=== PATIENT | male | born 2000 | race Caucasian/White ===

== ENCOUNTER → 2023-11-03 | Outpatient (CLI) | payer OTHER ==
--- NOTE | 2023-12-13 14:25 | P.CEMON ---
30 Day Event monitor note: Patient wore an event monitor for 30 days from 11/03/23-12/02/23. Findings: Patient's baseline heart rate was normal sinus rhythm. There were no signficant atrial fibrillation, atrial flutter, or ventricular tachycardia episodes. There were no significant pauses greater than 2 seconds. there were 2% PVC burden and 1% PAC burden There were 182 patient activated events with most of symptoms corresponding with PVCs and occasionally with sinus tachycardia Minimum heart rate 50 bpm Highest heart rate 137 bpm Average heart rate 78 bpm Conclusions: 30 day event monitor showing frequent PACs and PVCs with 2% PVC burden. Patient activated events corresponding with mostly PACs and PVCs and occasionally sinus rhythm, sinus tachycardia.
== END | disposition home or self-care (01) ==
LOC: EDSEX 07:30 → RADECHMAIN 07:30
PROVIDERS: ATTEND Family Medicine
DX: I49.3 Ventricular premature depolarization (principal); R00.2 Palpitations; R00.0 Tachycardia, unspecified
CPT/HCPCS: 93270

== ENCOUNTER 2024-06-21 15:24 | Emergency (ER) | payer OTHER ==
[2024-06-21 15:42] VITALS: TEMP 98.1
[2024-06-21 16:17] LABS: Basophils % (A) 0 %; Eosinophils # (A) 0.1 k/uL (0-0.7); Eosinophils % (A) 0 %; HCT 39.4 % (39.0-53.0); HGB 13.1 gm/dL (13.0-17.5); Lymphocytes # (A) 0.3 k/uL (1.0-4.8); Lymphocytes % (A) 2 %; MCHC 33.3 g/dL (31.0-37.0); MCV 96.1 fL (80.0-100.0); Mean Platelet Volume 7.5; Monocytes # (A) 0.2 k/uL (0-1.0); Monocytes % (A) 1 %; Neutrophils # (A) 15.7 k/uL (1.3-7.7); Neutrophils % (A) 96 %; Platelet Count 169 k/uL (150-450); WBC 16.2 k/uL (3.8-10.6)
[2024-06-21] MEDS: SODIUM CHLORIDE 0.9% 1,000 ML IV STA ×2 (16:19→18:47)
--- NOTE | 2024-06-21 16:24 | ED ---
Nausea/Vomiting/Diarrhea HPI - General Source: patient, EMS, RN notes reviewed Mode of arrival: EMS Limitations: no limitations - History of Present Illness MD complaint: nausea, vomiting, diarrhea Onset/Timin -: days(s) Description of Vomiting: food contents Description of Diarrhea: water Associated Abdominal Pain: No Context: possible food poisoning, sick contacts Associated Symptoms: fever/chills <Aden Dill - Last Filed: 06/21/24 18:59> <Ana Maria Sheikh - Last Filed: 06/21/24 20:24> - General Chief complaint: Nausea/Vomiting/Diarrhea Stated complaint: NVD Time Seen by Provider: 06/21/24 15:40 - History of Present Illness Initial comments: This is a 24-year-old male presenting via EMS from PCPs office for GI symptoms starting this morning. Patient states he was at his primary care's office when he suffered multiple syncopal episodes prompting a subsequent call to EMS. EMS notes patient appeared pale and hypotensive. States patient was given IM Tigan and PCPs office and IV fluid during transport. Patient states he suspects food poisoning with recent sick contact with significant other as well. Patient also endorses chills. Denies fever, chest pain, dyspnea, significant abdominal pain, hematemesis, hematochezia, melena. (Aden Dill) - Related Data Previous Rx's Medication Instructions Recorded Ondansetron [Zofran] 4 mg PO Q8HR PRN #15 tab 06/21/24 Allergies Allergy/AdvReac Type Severity Reaction Status Date / Time adhesive tape AdvReac Rash/Hives Verified 06/21/24 15:43 nickel AdvReac Rash/Hives Verified 06/21/24 15:43 Review of Systems ROS Other: All systems not noted in ROS Statement are negative. <Aden Dill - Last Filed: 06/21/24 18:59> ROS Other: All systems not noted in ROS Statement are negative. <Ana Maria Sheikh - Last Filed: 06/21/24 20:24> ROS Statement: Those systems with pertinent positive or pertinent negative responses have been documented in the HPI. Past Medical History Additional Past Medical History / Comment(s): palpatations, left wrist and femor brakes, growth hormone therapy for about 3 years, anerxia. History of Any Multi-Drug Resistant Organisms: None Reported Past Surgical History: Orthopedic Surgery Past Psychological History: ADD/ADHD, Anxiety, Depression Smoking Status: Former smoker Past Alcohol Use History: Occasional Past Drug Use History: Marijuana <Aden Dill Filed: 06/21/24 18:59> General Exam Limitations: no limitations General appearance: alert, in no apparent distress, other (Facial pallor noted) Head exam: Present: atraumatic, normocephalic, normal inspection Eye exam: Present: normal appearance, PERRL, EOMI. Absent: scleral icterus, conjunctival injection, periorbital swelling ENT exam: Present: normal exam, mucous membranes moist Neck exam: Present: normal inspection. Absent: tenderness, meningismus, lymphadenopathy Respiratory exam: Present: normal lung sounds bilaterally. Absent: respiratory distress, wheezes, rales, rhonchi, stridor Cardiovascular Exam: Present: regular rate, normal rhythm, normal heart sounds. Absent: systolic murmur, diastolic murmur, rubs, gallop, clicks GI/Abdominal exam: Present: soft, tenderness (Positive diffuse tenderness without guarding), normal bowel sounds. Absent: distended, guarding, rebound, rigid Extremities exam: Present: normal inspection, full ROM, normal capillary refill. Absent: tenderness, pedal edema, joint swelling, calf tenderness Back exam: Present: normal inspection Neurological exam: Present: alert, oriented X3, CN II-XII intact Psychiatric exam: Present: normal affect, normal mood Skin exam: Present: warm, dry, intact, normal color. Absent: rash <FuentesAden Filed: 06/21/24 18:59> Course Vital Signs 06/21/24 06/21/24 06/21/24 15:31 16:19 17:30 Temperature 98.1 F Pulse Rate 69 82 87 Respiratory 18 20 18 Rate Blood Pressure 113/98 105/56 106/63 O2 Sat by Pulse 100 99 100 Oximetry 06/21/24 06/21/24 18:51 19:57 Temperature Pulse Rate 89 82 Respiratory 20 18 Rate Blood Pressure 106/58 111/76 O2 Sat by Pulse 99 99 Oximetry Medical Decision Making - Lab Data Result diagrams: 06/21/24 16:12 06/21/24 16:12 <FuentesAden Filed: 06/21/24 18:59> - Lab Data Result diagrams: 06/21/24 16:12 06/21/24 16:12 - Radiology Data Radiology results: report reviewed, image reviewed <Ana Maria Sheikh - Last Filed: 06/21/24 20:24> - Medical Decision Making Was pt. sent in by a medical professional or institution (, [facility], REUSE TECHNICIAN, urgent care, hospital, or shelter...) When possible be specific @ -Dr. Juan Thomas, PCP Did you speak to anyone other than the patient for history (EMS, parent, family, police, friend...)? What history was obtained from this source @ -[No] Did you review nursing and triage notes (agree or disagree)? Why? @ -[I reviewed and agree with nursing and triage notes] Were old charts reviewed (outside hosp., previous admission, EMS record, old EKG, old radiological studies, urgent care reports/EKG's, shelter records)? Report findings @ -[No old charts were reviewed] Differential Diagnosis (chest pain, altered mental status, abdominal pain women, abdominal pain men, vaginal bleeding, weakness, fever, dyspnea, syncope, headache, dizziness, GI bleed, back pain, seizure, CVA, palpatations, mental health, musculoskeletal)? @ -Differential Abdominal Pain Men: Appendicitis, cholecystitis, diverticulosis, ischemic bowel, pancreatitis, hepatitis, UTI, gastroenteritis, AAA, incarcerated hernia, bowel obstruction, constipation, inflammatory bowel, hepatitis, peptic ulcer disease, splenic infarction, perforated viscus, testicular torsion, this is not meant to be an all-inclusive list EKG interpreted by me (3pts min.). @ -Not done X-rays interpreted by me (1pt min.). @ -[None done] CT interpreted by me (1pt min.). @ -[None done] U/S interpreted by me (1pt. min.). @ -[None done] What testing was considered but not performed or refused? (CT, X-rays, U/S, labs)? Why? @ -[None] What meds were considered but not given or refused? Why? @ -[None] Did you discuss the management of the patient with other professionals (professionals i.e. , [facility], REUSE TECHNICIAN, lab, RT, psych nurse, high school social science teacher, global marketing manager, teacher, founder and chief executive officer, spring encaser)? Give summary @ -[No] Was smoking cessation discussed for >3mins.? @ -[No] Was critical care preformed (if so, how long)? @ -[No] Were there social determinants of health that impacted care today? How? (Homelessness, low income, unemployed, alcoholism, drug addiction, transportation, low edu. Level, literacy, decrease access to med. care, assisted, rehab)? @ -[No] Was there de-escalation of care discussed even if they declined (Discuss DNR or withdrawal of care, Hospice)? DNR status @ -[No] What co-morbidities impacted this encounter? (DM, HTN, Smoking, COPD, CAD, Cancer, CVA, ARF, Chemo, Hep., AIDS, mental health diagnosis, sleep apnea, morb id obesity)? @ -[None] Was patient admitted / discharged? Hospital course, mention meds given and ro akhiok, prescriptions, significant lab abnormalities, going to OR and other pertinent info. @ -Basic blood work shows leukocytosis 16.2 with left shift. Hyperglycemia 142 also noted but otherwise unremarkable. Hemoglobin 13.1. Cepheid test negative. Patient initially given IV normal saline and IM Tigan at PCP/EMS. Initially given IV normal saline in ER with no complaints of nausea initially. Additional normal saline and Zofran provided due to ongoing orthostasis and returning nausea. Due to elevated white count, CT abdomen/pelvic order prior to transfer of care to Ana Maria Sheikh PA-C. Undiagnosed new problem with uncertain prognosis? @ -[No] Drug Therapy requiring intensive monitoring for toxicity (Heparin, Nitro, Insulin, Cardizem)? @ -[No] Were any procedures done? @ -[No] Diagnosis/symptom? @ -[default] Acute, or Chronic, or Acute on Chronic? @ -Acute Uncomplicated (without systemic symptoms) or Complicated (systemic symptoms)? @ -Complicated Side effects of treatment? @ -[No] Exacerbation, Progression, or Severe Exacerbation? @ -[No] Poses a threat to life or bodily function? How? (Chest pain, [place], [place], pneumonia, PE, COPD, DKA, ARF, appy, cholecystitis, CVA, Diverticulitis, Homicidal, Suicidal, threat to staff... and all critical care pts) @ -[No] (Aden Dill) Was patient admitted / discharged? Hospital course, mention meds given and route, prescriptions, significant lab abnormalities, going to OR and other pertinent info. @ -Patient signed out to me by previous shift, Aden Dill PA-C, pending CT abdomen pelvis results and disposition. In short this is a 24-year-old male presented to the ER for nausea, vomiting and diarrhea x [address] abdomen pelvis without evidence of acute process. Normal appendix. Symptomatic treatment in the ER with IV fluids and Zofran, without any repeat episodes of vomiting or diarrhea in the ER. Patient successfully passed p.o. challenge with ice chips and ady crackers. Symptoms believed to be viral in nature. Patient will be discharged with the Zofran starter pack. I advised plenty of fluids over the next 24 to 48 hours. Strict return parameters discussed. Patient discharged in stable condition with follow-up to PCP. Patient verbally expressed understanding agree with care plan. Case discussed with ED attending, Dr. Almonte. Undiagnosed new problem with uncertain prognosis? @ -No Drug Therapy requiring intensive monitoring for toxicity (Heparin, Nitro, Insulin, Cardizem)? @ -No Were any procedures done? @ -No Diagnosis/symptom? @ -Nausea, vomiting and diarrhea Acute, or Chronic, or Acute on Chronic? @ -Acute Uncomplicated (without systemic symptoms) or Complicated (systemic symptoms)? @ -Uncomplicated Side effects of treatment? @ -No Exacerbation, Progression, or Severe Exacerbation? @ -No Poses a threat to life or bodily function? How? (Chest pain, [place], [place], pneumonia, PE, COPD, DKA, ARF, appy, cholecystitis, CVA, Diverticulitis, Homicidal, Suicidal, threat to staff... and all critical care pts) @ -Low at this time (Ana Maria Sheikh) - Lab Data Lab Results 06/21/24 06/21/24 06/21/24 Range/Units 16:12 16:12 16:12 WBC 16.2 H (3.8-10.6) k/uL RBC 4.10 L (4.30-5.90) m/uL Hgb 13.1 (13.0-17.5) gm/dL Hct 39.4 (39.0-53.0) % MCV 96.1 (80.0-100.0) fL MCH 32.0 (25.0-35.0) pg MCHC 33.3 (31.0-37.0) g/dL RDW 12.0 (11.5-15.5) % Plt Count 169 (150-450) k/uL MPV 7.5 Neutrophils % 96 % Lymphocytes % 2 % Monocytes % 1 % Eosinophils % 0 % Basophils % 0 % Neutrophils # 15.7 H (1.3-7.7) k/uL Lymphocytes # 0.3 L (1.0-4.8) k/uL Monocytes # 0.2 (0-1.0) k/uL Eosinophils # 0.1 (0-0.7) k/uL Basophils # 0.0 (0-0.2) k/uL Sodium 137 (137-145) mmol/L Potassium 4.2 (3.5-5.1) mmol/L Chloride 106 (98-107) mmol/L Carbon Dioxide 24 (22-30) mmol/L Anion Gap 7 mmol/L BUN 17 (9-20) mg/dL Creatinine 0.67 (0.66-1.25) mg/dL Est GFR (CKD-EPI)AfAm >90 (>60 ml/min/1.73 sqM) Est GFR (CKD-EPI)NonAf >90 (>60 ml/min/1.73 sqM) Glucose 142 H (74-99) mg/dL Calcium 8.7 (8.4-10.2) mg/dL Total Bilirubin 1.2 (0.2-1.3) mg/dL AST 14 L (17-59) U/L ALT 13 (4-49) U/L Alkaline Phosphatase 41 (38-126) U/L Total Protein 6.5 (6.3-8.2) g/dL Albumin 4.0 (3.5-5.0) g/dL Influenza Type A (PCR) Not Detected (Not Detectd) Influenza Type B (PCR) Not Detected (Not Detectd) RSV (PCR) Not Detected (Not Detectd) SARS-CoV-2 (PCR) Not Detected (Not Detectd) Disposition Is patient prescribed a controlled substance at d/c from ED?: No <Aden Dill - Last Filed: 06/21/24 18:59> Is patient prescribed a controlled substance at d/c from ED?: No Time of Disposition: 19:31 <Ana Maria Sheikh - Last Filed: 06/21/24 20:24> Clinical Impression: Nausea, vomiting and diarrhea Disposition: HOME SELF-CARE Condition: Stable Instructions (If sedation given, give patient instructions): Acute Nausea and Vomiting (ED) Additional Instructions: Bananas, rice, applesauce, tea, toast for the next several days. Increase intake of Gatorade/Pedialyte. Harleen tea/rdaha for nausea. Follow-up with PCP/gastroenterology for ongoing symptoms. Return to ER if symptoms worsen significantly. Prescriptions: Ondansetron [Zofran] 4 mg PO Q8HR PRN #15 tab PRN Reason: Nausea Referrals: Juan Thomas DO [Primary Care Provider] - 1-2 days Marycruz Mcdowell MD [STAFF PHYSICIAN] - 1-2 days
[2024-06-21 16:27] LABS: ALT 13 U/L (4-49); AST 14 U/L (17-59); African American GFR (CKD) >90 (>60 ml/min/1.73 sqM); Alkaline Phosphatase 41 U/L (38-126); Anion Gap 7 mmol/L; Blood Urea Nitrogen 17 mg/dL (9-20); Calcium 8.7 mg/dL (8.4-10.2); Carbon Dioxide 24 mmol/L (22-30); Chloride 106 mmol/L (98-107); Glucose 142 mg/dL (74-99); Non-African American GFR(CKD) >90 (>60 ml/min/1.73 sqM); Potassium 4.2 mmol/L (3.5-5.1); Sodium 137 mmol/L (137-145); Total Bilirubin 1.2 mg/dL (0.2-1.3); Total Protein 6.5 g/dL (6.3-8.2)
[2024-06-21 17:28] LABS: Influenza A Not Detected (Not Detectd); Influenza B Not Detected (Not Detectd); RSV Not Detected (Not Detectd)
[2024-06-21] MEDS: ONDANSETRON 4 MG/2 ML VIAL IVP STA (18:48)
--- NOTE | 2024-06-21 19:14 | CT ---
EXAMINATION TYPE: CT abdomen pelvis w con DATE OF EXAM: 06/21/2024 7:08 PM COMPARISON: None. CLINICAL INDICATION: Male, 24 years old with history of N/V/D,, abdominal pain, elevated WBC, N/V/D,, abdominal pain, elevated WBC, hypotensive TECHNIQUE:CT scan of the abdomen and pelvis is performed without Oral Contrast and with IV Contrast, patient injected with 100 mL of Isovue 300. CT DLP: 569.9 mGycm, Automated exposure control for dose reduction was used. FINDINGS: LUNG BASES-: No visible nodule. No infiltrate. LIVER/GB: No calcified gallstones. No space occupying hepatic lesion. Biliary tree is of normal ca liber. PANCREAS: No inflammation. No distinct mass. SPLEEN: No splenic enlargement. No lesion seen. ADRENALS: No nodule. No thickening. KIDNEYS/BLADDER: No hydronephrosis. No nephrolithiasis. No distinct renal mass. Urinary bladder g rossly unremarkable. BOWEL: Normal appendix. Normal bowel caliber. No inflammation. GENITAL ORGANS: No gross abnormality. LYMPH NODES: No greater than 1cm abdominal or pelvic lymph nodes are appreciated. AORTA: No significant abnormality. OSSEOUS STRUCTURES: No significant abnormality is seen. OTHER: No significant additional abnormality is seen. IMPRESSION: 1. No acute process seen within the abdomen or pelvis to account for the patient's symptoms. Normal a ppendix is visualized. [facility], , 06/21/2024 7:12 PM
[2024-06-21] MEDS: ONDANSETRON 4 MG ODT STARTER PACK 2 TAB BTL PO STA (19:42)
[2024-06-21 19:58] VITALS: BP 111/76; PULSE 82; RESP 18
== END 2024-06-21 19:58 | disposition home or self-care (01) ==
LOC: EC 15:24
DX: R11.2 Nausea with vomiting, unspecified (principal); R19.7 Diarrhea, unspecified; R10.84 Generalized abdominal pain; Z87.891 Personal history of nicotine dependence
CPT/HCPCS: 36415; 93005; 80053; 85025; 87636; 74177; 99285; 96374; 96361 ×2; J2405; S0119; Q9967